=== PATIENT | male | born 1985 | race Caucasian/White ===

== ENCOUNTER → 2023-02-01 09:50 | Outpatient (CLI) | payer MEDICAID, SELFPAY ==
--- NOTE | 2023-02-01 09:55 | XR_ITS ---
FINAL REPORT CLINICAL HISTORY: foot pain FINDINGS: LEFT FOOT Three views of the left foot demonstrate no acute fracture or dislocation. There is marked hallux valgus deformity with medial subluxation of the 1st proximal phalange. There is marked hammertoe deformity of 3rd, 4th and 5th digits. The soft tissues are unremarkable. IMPRESSION: Marked hallux valgus deformity. Marked hammertoe deformity as above. No acute bony abnormality. Reviewed, Interpreted and Dictated by Jm Mckeon MD Transcribed by Rosalia Hickey Authenticated and [facility]
--- NOTE | 2023-02-01 09:55 | XR_ITS ---
FINAL REPORT CLINICAL HISTORY: foot pain FINDINGS: RIGHT FOOT Three views of the right foot were obtained. There is orthopedic hardware securing the 1st metatarsal phalangeal joint and the 1st tarsometatarsal joint. There is no acute fracture or dislocation. 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 The soft tissues are unremarkable. IMPRESSION: Postoperative changes as above. 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 No acute bony abnormality. Reviewed, Interpreted and Dictated by Jm Mckeon MD Transcribed by Rosalia Hickey Authenticated and [facility]
[2023-02-01 10:36] LABS: Basophils # 0.1 K/mm3 (0-0.2); Basophils % 0.7 % (0.1-2.0); Eosinophils # 0.3 K/mm3 (0.0-0.4); Eosinophils % 4.3 % (0.1-12.0); Hematocrit 47.2 % (42.0-52.0); Hemoglobin 15.1 g/dL (14.1-18.0); Lymphocytes # 2.6 K/mm3 (0.7-4.5); Lymphocytes % 37.9 % (10-50); Mean Corpuscular HGB Conc 31.9 g/dL (31.8-35.4); Mean Corpuscular Hemoglobin 29.7 pg (27.0-31.2); Mean Corpuscular Volume 93.2 fl (80-94); Monocytes # 0.4 K/mm3 (0.1-1.0); Monocytes % 6.2 % (1.7-9.3); Neutrophils # 3.5 K/mm3 (1.8-7.8); Neutrophils % 50.9 % (37.0-80.0); Platelet Count 284 K/mm3 (142-424); Red Blood Count 5.06 M/mm3 (4.60-6.20); Red Cell Distribution Width 13.7 % (11.5-17.5); White Blood Count 6.9 K/mm3 (4.8-10.8)
[2023-02-01 10:51] LABS: Alanine Aminotransferase 24 U/L (12-78); Albumin Level 4.7 g/dl (3.5-5.0); Albumin/Globulin Ratio 1.9 (1.1-1.8); Alkaline Phosphatase 70 U/L (38-126); Anion Gap 12.9 mEq/L (5-15); Aspartate Amino Transferase 27 U/L (17-59); Blood Urea Nitrogen 9 mg/dl (9-20); Calcium 8.7 mg/dl (8.4-10.2); Carbon Dioxide 26 mmol/L (22.0-30.0); Chloride 106 mmol/L (98-107); Estimated Glomerular Filt Rate 127 ml/min (>60); GFR (African American) 154 ML/MIN (>60); Globulin 2.5 g/dL (1.3-3.2); Glucose 88 mg/dl (74-100); Potassium 3.9 mmoL/L (3.5-5.1); Sodium 141 mmol/L (136-145); Total Protein,Serum 7.2 g/dl (6.3-8.2); Uric Acid 4.5 mg/dl (3.5-8.5)
[2023-02-01 11:00] LABS: Erythrocyte Sedimentation Rate 12 mm/hr (0-15)
[2023-02-01 11:02] LABS: C-Reactive Protein 1.7 mg/L (0-4)
--- NOTE | 2023-02-01 12:31 | ECG_ITS ---
APPROVED REPORT Exam: Resting ECG HR:54 bpm ECG Measurements Heart Rate 54 AXES MN 171 P 74 QRSd 104 QRS 113 QT 393 T 43 QTc 379 Conclusion SINUS BRADYCARDIA POSSIBLE RIGHT VENTRICULAR HYPERTROPHY [SOME/ALL OF: PROMINENT R IN V1, LATE TRANSITION, RAD, KATELIN, SSS] ABNORMAL ECG UNCONFIRMED REPORT Electronically signed by : Paul Rosas MD 02/01/2023 21:15:44
[2023-02-01 12:47] LABS: 25-OH Vitamin D, Total 29.8 ng/mL (30-100)
[2023-02-02 10:12] LABS: RA Latex Turbid. <10.0 IU/mL (<14.0)
[2023-02-03 14:00] LABS: Antinuclear Antibodies, IFA Negative (.)
[2023-02-12 18:04] LABS: Cotinine 171.7; Nicotine 12.3
== END ==
PROVIDERS: PCP Nurse Practitioner Family; Visit Provider Podiatrist
DX: Z01.818 Encounter for other preprocedural examination (principal); M79.671 Pain in right foot; E55.9 Vitamin D deficiency, unspecified
CPT/HCPCS: 36415; 73630; 80053; 80323; 82306; 84550; 85025; 85651; 86038; 86140; 86431; 93005

== ENCOUNTER → 2023-02-15 13:06 | Outpatient (CLI) | payer MEDICAID, SELFPAY ==
--- NOTE | 2023-02-15 13:09 | US_ITS ---
FINAL REPORT CLINICAL HISTORY: DISCOLARATION OF THE RIGHT FOOT,HAD RT FOOT SURGERY LAST YEAR,DECREASED PULSES,BILATERAL FEET DEFORMITES,SMOKER,CLAUDICATION,REST PAIN FINDINGS: ANKLE-BRACHIAL PRESSURE INDICES Pressure indices are as follows: RIGHT LOWER EXTREMITY: Ankle-brachial pressure index: 1.2 Comments: Normal LEFT LOWER EXTREMITY: Ankle-brachial pressure index: 1.2 Comments: Normal CONCLUSION: No evidence of significant obstructive peripheral vascular disease of the lower extremities Reviewed, Interpreted and Dictated by Stef Salas III, MD Transcribed by Rosalia Hickey Authenticated and [facility]
== END ==
PROVIDERS: PCP Nurse Practitioner Family; Visit Provider Podiatrist
DX: R09.89 Other specified symptoms and signs involving the circulatory and respiratory systems (principal)
CPT/HCPCS: 93923

== ENCOUNTER → 2023-04-20 14:28 | Outpatient (CLI) | payer MEDICAID, SELFPAY | PROVIDERS: PCP Nurse Practitioner Family; Visit Provider Nurse Practitioner | DX: R06.02 Shortness of breath (principal); R07.9 Chest pain, unspecified; R60.9 Edema, unspecified; R94.31 Abnormal electrocardiogram [ECG] [EKG] | CPT/HCPCS: 93306 ==